=== PATIENT | male | born 1945 | race African-American/Black ===

== ENCOUNTER 2016-10-16 06:55 | Day surgery (SDC) | payer MEDICARE, BC ==
[~2016-10-16] VITALS: Ht 185.4 cm; Wt 71.8 kg
[~2016-10-16 06:55] MED LIST: AMLO5TAB22 PO; ASPI81TA11 PO; CART120C2 PO; CLON.1 PO; CLOP75TA PO; GABA300C3 PO; ISOSPOW PO; LORTA5 PO; LOSA50TA PO; METO100T PO; MULT1TAB46 PO; NAPR220T95 PO; NOVO7030P2 SQ
[2016-10-16] MEDS ORDERED: CLON0.1T PO (08:08)
[2016-10-16] MEDS ORDERED: AMLO5TAB2 PO (08:08)
[2016-10-16] MEDS ORDERED: CART120C PO (08:08)
[2016-10-16] MEDS ORDERED: METO100T PO (08:08)
[2016-10-16] MEDS ORDERED: CLOP75TA PO (08:08)
[2016-10-16] MEDS ORDERED: TYLE325T PO (08:08)
[2016-10-16] MEDS ORDERED: NOVO7030P2 SQ (08:08)
[2016-10-16] MEDS ORDERED: ATOR20TA15 PO (08:08)
[2016-10-16] MEDS ORDERED: LOSA50TA PO (08:08)
[2016-10-16] MEDS ORDERED: MULT1TAB84 PO (08:08)
[2016-10-16] MEDS ORDERED: NAPR220T95 PO (08:08)
[2016-10-16] MEDS ORDERED: GABA300C5 PO (08:08)
[2016-10-16] MEDS ORDERED: ASPI1TAB69 PO (08:08)
[2016-10-16 08:12] VITALS: BP 207/89; PULSE 65; RESP 18; TEMP 97.8; O2SAT 100
[2016-10-16] MEDS ORDERED: HEPARIN-NS/PF INJ 500 ML ONE ×3 (08:39→10:50)
[2016-10-16] MEDS ORDERED: MIDAZOLAM HCL 2 MG/2 ML VIAL ONE ×2 (08:39→10:28)
[2016-10-16] MEDS ORDERED: NITROGLYCERIN INJ 5 ML ONE ×4 (08:40→11:22)
[2016-10-16] MEDS ORDERED: HEPARIN SODIUM - IV 10,000 UNITS/10 ML VIAL ONE (08:40)
[2016-10-16] MEDS ORDERED: ADENOSINE IV SOLN 3 MG/ML 2 ML VIAL ONE ×2 (09:43→09:46)
[2016-10-16] MEDS ORDERED: hydrALAZINE HCL 20 MG/ML VIAL ONE (11:28)
[2016-10-16] MEDS ORDERED: CLOPIDOGREL 75 MG TAB ONE (11:39)
[2016-10-16] MEDS ORDERED: LABETALOL HCL 100 MG/20 ML VIAL IVP PRN (11:45)
[2016-10-16] MEDS ORDERED: ONDANSETRON HCL 4 MG/2 ML VIAL IV PRN (11:45)
[2016-10-16] MEDS ORDERED: SODIUM CHLOR 0.9% 250 ML INJ 250 ML IV PRN (11:45)
[2016-10-16] MEDS ORDERED: hydrALAZINE HCL 20 MG/ML VIAL IV PUSH PRN (11:45)
[2016-10-16] MEDS ORDERED: ENALAPRILAT 1.25 MG/ML VIAL IV PRN (11:45)
[2016-10-16] MEDS ORDERED: cloNIDine HCL 0.1 MG TAB PO PRN (11:45)
[2016-10-16] MEDS ORDERED: LORazepam 2 MG/ML VIAL IV PRN (11:45)
[2016-10-16] MEDS ORDERED: BACITRACIN OINT 0.9 GM PKT TOP ONE (11:45)
[2016-10-16] MEDS ORDERED: MORPHINE SULFATE 4 MG/ML INJ IV PUSH PRN (11:45)
[2016-10-16] MEDS ORDERED: LIDOCAINE HCL 1% 50 ML VIAL INFIL PRN (11:45)
[2016-10-16] MEDS ORDERED: HETASTARCH 6%/LACTAT LYTES INJ 500 ML IV PRN (11:45)
[2016-10-16] MEDS ORDERED: NITROPRUSSIDE INJ 50 MG in DEXTROSE 5% IN WATER INJ 248 ML IV SCH ×2 (11:45)
[2016-10-16] MEDS ORDERED: MISC INFORMATION XX PRN (11:45)
[2016-10-16] MEDS ORDERED: TEMAZEPAM 15 MG CAP PO PRN (11:45)
[2016-10-16] MEDS ORDERED: POTASSIUM CHLORIDE 20 MEQ CONTROLLED RELEASE TAB PO PRN (11:45)
[2016-10-16] MEDS ORDERED: ATROPINE SULFATE 1 MG/ML VIAL IV PRN (11:45)
[2016-10-16] MEDS ORDERED: METOCLOPRAMIDE HCL 10 MG/2 ML VIAL IV PRN (11:45)
[2016-10-16] MEDS ORDERED: IOHEXOL 350 MG/ML 50 ML BTL (for Cath Lab) OTHER ONE (12:20)
[2016-10-16] MEDS ORDERED: IOHEXOL 350 MG/ML 100 ML BTL (for Cath Lab) OTHER ONE (12:20)
[2016-10-16] MEDS: cloNIDine HCL 0.1 MG TAB PO PRN ×2 (12:45→19:55)
--- NOTE | 2016-10-16 13:15 | MA ---
cc: LELIA HU DPM NICHOLAS RAVI DATE 10/16/2016 Peripheral angiography with intervention. PROCEDURE PERFORMED 1. Fluoroscopy with interpretation 2. Descending aortography 3. Left lower extremity peripheral angiography with first, second, and third order visualization interpretation. 4. Orbital rotational atherectomy and balloon angioplasty with drug coated balloon of chronically occluded left anterior tibial artery. 5. Orbital rotational atherectomy and balloon angioplasty of chronically occluded left peroneal artery. 6. Percutaneous angioplasty of left superficial popliteal arteries. METHOD The risks, benefits and alternatives discussed us with the patient. The patient understood and consented to the procedure. PROCEDURE The patient brought into the catheterization lab, placed on the catheterization table. The right groin prepped and draped in a sterile fashion. The right groin was anesthetized with 2% lidocaine. The right common femoral artery was cannulated. A 5-[place] 11 center sheath was placed without difficulty. DESCENDING AORTOGRAPHY Descending aortography was performed through anterior-posterior views using a 24 cc contrast injection with good opacification. Descending aortography revealed mild infrarenal descending aortic atherosclerosis. LEFT LOWER EXTREMITY PERIPHERAL ANGIOGRAPHY Left internal, external common iliac arteries have minor luminal irregularities. Left common femoral and profunda arteries widely patent. THe left superficial femoral artery has rather diffuse 50% calcific disease through the entire course. The left popliteal has a 60% stenosis in the mid segment. The left anterior tibial artery is occluded in the mid segment. The left peroneal, posterior tibial trunk is occluded proximally. PERCUTANEOUS INTERVENTION A 6-[place] 90 cm Terumo destination sheath was advanced up-and-over the arch into the left popliteal artery. Heparin was administered throughout the entire procedure. A 0.014 inch hydro-ST wire was navigated behind a 0.014 inches Quick-cross catheter down to the distal dorsalis pedis vessel. Digital subtraction angiography confirmed intraluminal placement. A 1.25 mm CSI atherectomy catheter was then prepped and advanced over the wire. Orbital rotational atherectomy was performed on six sequential passes through the entire length of the anterior tibial artery. A 2.5 x 200 mm balloon was advanced to the left anterior tibial artery and deployed on two sequential inflations. A 4.0 x 150 mm drug coated balloon was advanced down the distal anterior tibial vessel and a 4.0 x 120 mm drug coated balloon was advanced to the proximal anterior tibial vessel and deployed for prolonged inflation. Repeat angiography showed DANA-III flow. No significant residual stenosis. Attention was then directed towards the chronically occluded peroneal posterior tibial trunk to see if we improve inflow the best we can. With a great deal of time and effort, a total across 0.014 inches catheter was advanced behind a 0.014 inch wire through the chronic occlusion into the distal peroneal vessel. Orbital rotational atherectomy was then performed through the peroneal vessel followed by balloon angioplasty a 2.5 x 200 mm Medtronic balloon. Repeat angiography showed DANA-III flow. To improve inflow the best we can, a 6.0 x 200 mm Medtronic balloon was advanced down to the popliteal artery and deployed to 10 atmospheres. The same balloon was then deployed on two sequential inflations through the left superficial femoral artery. Repeat angiography showed DANA-III flow and only mild residual stenosis. The sheath was then sewn into place to be removed with manual hemostasis. CONCLUSIONS 1. Successful revascularization of chronically occluded left anterior tibial and peroneal arteries with orbital rotation atherectomy and balloon angioplasty. 2. Successful balloon angioplasty of the left superficial femoral and popliteal arteries. 3. Mild infrarenal descending aortic atherosclerosis. PLAN Hopefully this will translate to symptomatic improvement. At the completion of the procedure, he had 2+ dorsalis pedis pulse palpable. Hopefully we will get some meaningful long-term patency. He will continue aspirin and Plavix. MD AZUCENA Coyle/ZEINA /11:46 AM /1:00 PM
[2016-10-16] MEDS ORDERED: hydrALAZINE HCL 50 MG TAB PO SCH (14:00)
[2016-10-16] MEDS ORDERED: HYDR50TA15 PO (16:22)
[2016-10-18] MEDS ORDERED: ASPIRIN EC 81 MG TABEC PO SCH (09:00)
[2016-10-18] MEDS ORDERED: CLOPIDOGREL 75 MG TAB PO SCH (09:00)
== END 2016-10-16 21:00 | disposition home or self-care (01) ==
LOC: HDIC 06:55 → HDOC 06:55
PROVIDERS: ATTEND Internal Medicine
DX: I73.9 Peripheral vascular disease, unspecified (principal); I70.0 Atherosclerosis of aorta; I48.91 Unspecified atrial fibrillation; F17.210 Nicotine dependence, cigarettes, uncomplicated; N18.6 End stage renal disease; Z99.2 Dependence on renal dialysis; I27.2 Other secondary pulmonary hypertension; E11.51 Type 2 diabetes mellitus with diabetic peripheral angiopathy without gangrene; Z79.82 Long term (current) use of aspirin; Z79.01 Long term (current) use of anticoagulants; Z79.4 Long term (current) use of insulin
CPT/HCPCS: 37224; 37229; 37233; 75625; 75710; 85002; 85347; 86850; 86900; 86901; C1714; C1725; C1751; C1769; C1893; C2623; J0153; J1644; J2250; J3010; J0360; Q9967